=== PATIENT | male | born 1955 | race Caucasian/White ===

== ENCOUNTER 2021-11-01 11:28 | Emergency (ER) | payer MEDICAID ==
[~2021-11-01] VITALS: Ht 167.6 cm; Wt 78.5 kg
--- NOTE | 2021-11-01 11:30 | NUR ---
RECEVED PT 66 YRS MALE HERE WITH ACTIVE BLEEDING ON LOWER LIPS ACCEDTY CUT HIM SELF THIS MORNING DID NOT STOPE WITH PRESSURE
--- NOTE | 2021-11-01 11:45 | NUR ---
SEEN BY DR. SILVERIO ASKE PT TO APPEY PRESSURE ON LOWER LIP DONE STILL BLEEDING
--- NOTE | 2021-11-01 12:10 | NUR ---
SUTURE DONE BY DR. SILVERIO AT BED SIDE PT TOLORATED PROCCEDURE WILL PT UP TO DATE WITH RANDA
--- NOTE | 2021-11-01 12:35 | NUR ---
NO ACTIVE BLEEDING STOOPED D/C INSTRACTION GIVEN TO PT FULLY AND VERBLIZED UNDERSTOOD D/C HOME STABLE CONDTION
[2021-11-01 12:46] VITALS: BP 133/83
== END 2021-11-01 12:47 | disposition home or self-care (01) ==
LOC: ER 11:30
DX: S01.511A Laceration without foreign body of lip, initial encounter (principal); I10 Essential (primary) hypertension; F17.200 Nicotine dependence, unspecified, uncomplicated; Z86.79 Personal history of other diseases of the circulatory system; W26.8XXA Contact with other sharp object(s), not elsewhere classified, initial encounter; Y93.E8 Activity, other personal hygiene; Y92.89 Other specified places as the place of occurrence of the external cause; Y99.8 Other external cause status
CPT/HCPCS: 12011; 99282; A6403